=== PATIENT | female | born 1990 | race Caucasian/White ===

== ENCOUNTER 2016-11-12 17:28 | Emergency (ER) | payer OTHER ==
[~2016-11-12] VITALS: Ht 165.1 cm; Wt 47.4 kg
[~2016-11-12 17:28] MED LIST: ACID CONTROL20 MG PO; MUCINEX FAST M PO; NOHOMEMEDS; PRENATAL TABLE1 EAC3 PO; PROMETHAZINE HC25 M1 PO
[2016-11-12] MEDS ORDERED: PEN-VEE K,VEET500 MG PO (20:14)
[2016-11-12 20:29] VITALS: BP 116/77
== END 2016-11-12 20:40 | disposition home or self-care (01) ==
LOC: EME 17:28
DX: K04.7 Periapical abscess without sinus (principal)
CPT/HCPCS: 99281; 99284